=== PATIENT | female | born 1990 | race Caucasian/White ===

== ENCOUNTER 2019-01-06 14:11 | Inpatient (IN) | payer OTHER ==
[~2019-01-06 14:11] MED LIST: Bupivacaine/Epinephrine 0.25% 30 ML VIAL ONE
[2019-01-06 21:42] VITALS: BMI 39.1
[2019-01-06] MEDS ORDERED: Butorphanol Tartrate 1 MG/ML VIAL SLOW IVP PRN (21:52)
[2019-01-06] MEDS ORDERED: Carboprost 250 MCG/ML AMP IM PRN (21:52)
[2019-01-06] MEDS ORDERED: Lidocaine 1% (PF) 30 ML VIAL SC PRN (21:52)
[2019-01-06] MEDS ORDERED: Misoprostol 200 MCG TAB PR PRN (21:52)
[2019-01-06] MEDS ORDERED: HYDROcodone/Acetaminophen 5/325 mg Tablet PO PRN (21:52)
[2019-01-06] MEDS ORDERED: Diphenoxylate HCl/Atropine Tablet PO PRN (21:52)
[2019-01-06] MEDS ORDERED: Acetaminophen 500 MG TAB PO PRN (21:52)
[2019-01-06] MEDS ORDERED: Ondansetron PF 4 MG/2 ML Vial IVP PRN (21:52)
[2019-01-06] MEDS ORDERED: Promethazine HCl 25 MG/ML VIAL IM PRN (21:52)
[2019-01-06] MEDS ORDERED: Methylergonovine 0.2 MG/ML VIAL IM PRN (21:52)
[2019-01-06] MEDS ORDERED: Ibuprofen 800 MG TAB PO PRN (21:52)
[2019-01-06] MEDS ORDERED: NS / Oxytocin 40 units/1000ml 1,000 ML IV PRN (21:52)
[2019-01-06] MEDS ORDERED: NS w/ Oxytocin 10 units 500 ML IV SCH (22:00)
[2019-01-06] MEDS ORDERED: Penicillin G Potassium 5 MILL.UNITS in Sodium Chloride 0.9% 100 ML IVPB SCH (22:00)
[2019-01-06] MEDS: Lactated Ringer's 1,000 ML IV SCH (22:00)
[2019-01-06 22:15] LABS: Mean Corpuscular HGB CONC 33.1 g/dL (32.0-36.0); Mean Corpuscular Hemoglobin 26.2 pg (27.0-31.0); Mean Corpuscular Volume 79.2 fL (78.0-98.0); Mean Platelet Volume 8.6 fL (7.4-10.4); Platelet Count 296 thou/uL (130-400); RBC Distribution Width 14.5 % (11.5-14.5); Red Blood Cell (RBC) Count 3.81 mill/uL (4.20-5.40); White Blood Cell (WBC) Count 11.4 thou/uL (4.8-10.8)
[2019-01-06] MEDS: Misoprostol 100 MCG TAB VAG SCH (22:15)
[2019-01-06 22:48] LABS: HBSAg Index 0.36 S/CO (0-0.99); Hep B Surf Ag Non-Reactive S/CO (NonReactive)
[2019-01-06 22:55] LABS: Syphilis Antibody Nonreactive (Nonreactive); Syphilis Antibody Index 0.03 S/CO (<1.00 Non-Reactive)
[2019-01-07] MEDS: Lactated Ringer's 1,000 ML IV SCH ×2 (03:00→06:40)
[2019-01-07] MEDS: Misoprostol 100 MCG TAB VAG SCH ×3 (03:50→17:06)
[2019-01-07] MEDS ORDERED: Fentanyl 4 mcg/Bup 0.1% Cadd 100 ML ONE ×2 (05:30→12:32)
[2019-01-07] MEDS ORDERED: Naloxone HCl 0.4 mg/ml Vial IVP PRN ×2 (06:24)
[2019-01-07] MEDS ORDERED: ePHEDrine/0.9% NaCl/PF SYRINGE 50 mg/10 ml SLOW IVP PRN (06:24)
[2019-01-07] MEDS ORDERED: Lactated Ringer's 500 ML IV PRN (06:24)
[2019-01-07] MEDS ORDERED: diphenhydrAMINE 50 MG/ML VIAL IVP PRN (06:24)
[2019-01-07] MEDS ORDERED: Acetaminophen 325 MG TAB PO PRN (06:24)
[2019-01-07] MEDS ORDERED: Eucerin (Mineral Oil/Petrolatum,White) 30 gm Jar TOP PRN (06:24)
[2019-01-07] MEDS ORDERED: Ondansetron PF 4 MG/2 ML Vial IVP PRN ×2 (06:24→14:13)
[2019-01-07] MEDS ORDERED: Promethazine HCl 25 MG/ML VIAL IM PRN ×2 (06:24→14:13)
[2019-01-07] MEDS ORDERED: Fentanyl 4 mcg/Bupivacaine 0.1% Cassette 100 ML EPIDURAL SCH (06:30)
[2019-01-07] MEDS ORDERED: Communication Order-Pharmacy FS SCH (06:30)
[2019-01-07] MEDS: Penicillin G 2.5 MILL.units 2.5 MILL.UNITS in Premix Bag 1 BAG IVPB SCH ×3 (11:12→17:04)
[2019-01-07] MEDS ORDERED: NS / Oxytocin 40 units/1000ml 1,000 ML ONE (12:19)
--- NOTE | 2019-01-07 13:49 | PDOC.OPDEL ---
OB Operative/Delivery Note Delivery Dr/Surgeon: Justino Assist: n/a Pre-Delivery Diagnosis: elective induction Procedure/Post Delivery Dx: spontaneous vaginal delivery Weeks gestation: 39 Anesthesia: epidural - Findings A Sex: female - 1 min: 9 - 5 min: 9 - Additional Findings/Plan Placenta delivered: spontaneous Repaired Obstetrical Laceration: 1st degree (repaired with 2-0 vicryl in figure of eight for hemostasis) Estimated blood loss: 300 Post delivery plan: routine recovery
--- NOTE | 2019-01-07 13:51 | PDOC.LDHP ---
Labor and Delivery H&P Chief complaint: scheduled induction HPI: 28yo at 39w1d by LMP for elective IOL. No complaints, SROM at 0600 clear, s/p cytotec x 2 doses last night. Working epidural in place. Current gestational age (weeks): 39 Due date: 01/13/19 Dating criteria: last menstrual period Grav: 1 Para: 0 Current complications: none Abnormal US findings: No Past Medical History: denies Current medications: pre- vitamins Previous surgical history: none Allergies/Adverse Reactions: Allergies Allergy/AdvReac Type Severity Reaction Status Date / Time No Known Allergies Allergy Verified 01/06/19 21:43 Social history: none - Physical Exam Vital signs reviewed and normal: yes General: NAD Heart: RRR Lungs: CTAB Abdomen: gravid Extremeties: no edema FHT: category 1 [employer] contractions every: 2-4min - Vaginal Exam cm dilated: 4 Effacement: 75% Station: -2 - OB Labs Blood type: O RH: positive Antibody Screen: negative HIV: negative RPR: negative HEPSAg: negative 1 hour GCT: positive 3 hour GTT: negative GBS: positive Urine drug screen: negative Rubella: immune - Assessment L&D Assessment: elective induction at term - Plan Plan: admit to L&D, cervical ripening, labor augmentation if indicated, GBS antibiotic prophylaxis, informed consent obtained, anesthesia consult for pain management
[2019-01-07] MEDS ORDERED: HYDROcodone/Acetaminophen 5/325 mg Tablet PO PRN ×2 (14:13)
[2019-01-07] MEDS ORDERED: Benzocaine-Menthol 82.5 ML CAN TOP PRN (14:13)
[2019-01-07] MEDS ORDERED: Lanolin Ointment 7 GM TUBE TOP PRN (14:13)
[2019-01-07] MEDS ORDERED: Milk Of Magnesia 30 ML UDCUP PO PRN (14:13)
[2019-01-07] MEDS ORDERED: Adacel (T-DAP) 0.5 ML SYRINGE IM ONE (14:13)
[2019-01-07] MEDS ORDERED: diphenhydrAMINE 25 MG CAP PO PRN (14:13)
[2019-01-07] MEDS ORDERED: NS / Oxytocin 40 units/1000ml 1,000 ML IV SCH (14:13)
[2019-01-07] MEDS ORDERED: Bisacodyl 10 MG SUPP PR PRN (14:13)
[2019-01-07] MEDS ORDERED: Preparation H Ointment 28 GM TUBE PR PRN (14:13)
[2019-01-07] MEDS: Ibuprofen 800 MG TAB PO SCH ×2 (17:00→18:54)
[2019-01-07] MEDS: Ferrous Sulfate 325 MG TAB PO SCH (17:01)
[2019-01-07] MEDS ORDERED: Sodium Chloride 0.9% 10 ML ONE (20:14)
[2019-01-07] MEDS: Docusate Calcium (SURFAK) 240 MG CAP PO SCH (21:40)
[2019-01-08] MEDS: Ibuprofen 800 MG TAB PO SCH ×3 (05:15→22:01)
[2019-01-08] MEDS: Ferrous Sulfate 325 MG TAB PO SCH ×2 (07:34→17:24)
--- NOTE | 2019-01-08 09:28 | PDOC.PP ---
Post Progress Note Post Day #: 1 Subjective: doing well, nursing well, normal lochia, prefers DC home today if baby DC PO intake tolerated: yes Flatus: yes Ambulation: yes Vital Signs (12 hours) Temp Pulse Resp BP BP Pulse Ox 01/08/19 08:13 98.0 F 64 20 108/55 L 98 01/08/19 05:05 98.1 F 61 18 107/54 L 100 01/08/19 00:10 98.4 F 70 20 109/58 L 96 Weight Weight 235 lb - Physical Examination General: NAD Respiratory: non-labored breathing Skin: no rash Neurological: no gross focal deficits Psychiatric: A&Ox3, normal affect Result Diagrams: 01/06/19 21:57 Additional Labs: Post Labs Blood Type O POSITIVE 01/06/19 21:57 Hep Bs Antigen Non-Reactive S/CO (NonReactive) 01/06/19 21:57 - Assessment/Plan PPD1 doing well, no concerns, desires DC home today if baby DC'd.
[2019-01-08] MEDS: Docusate Calcium (SURFAK) 240 MG CAP PO SCH ×2 (09:46→22:01)
[2019-01-08] MEDS: Prenatal Vitamin 1 TAB PO SCH (09:46)
[2019-01-09] MEDS: Ibuprofen 800 MG TAB PO SCH (05:24)
[2019-01-09 08:09] VITALS: BP 110/65; TEMP 97.9
[2019-01-09] MEDS: Prenatal Vitamin 1 TAB PO SCH (09:02)
[2019-01-09] MEDS: Docusate Calcium (SURFAK) 240 MG CAP PO SCH (09:02)
[2019-01-09] MEDS: Ferrous Sulfate 325 MG TAB PO SCH (09:02)
--- NOTE | 2019-01-09 09:43 | PDOC.PP ---
Post Progress Note Post Day #: 2 Subjective: Having sore nipples and difficultly with painful latch. She would like help PO intake tolerated: yes Flatus: yes Ambulation: yes Vital Signs (12 hours) Temp Pulse Resp BP Pulse Ox 01/09/19 08:09 97.9 F 73 20 110/65 99 Weight Weight 235 lb - Physical Examination General: NAD Cardiovascular: no m/r/g, RRR Respiratory: clear to auscultation bilaterally Abdominal: lochia (minimal) Extremities: negative homans (B) Skin: no rash Neurological: no gross focal deficits Psychiatric: A&Ox3, normal affect Result Diagrams: 01/06/19 21:57 Additional Labs: Post Labs Blood Type O POSITIVE 01/06/19 21:57 Hep Bs Antigen Non-Reactive S/CO (NonReactive) 01/06/19 21:57 - Assessment/Plan A: 1degree. NML PPD 1 exam. Stage one nipple damage P: Assisted with breasteeding at bedside. Edu on nml , infant cues , position, saiety. LATCH. Discharge home today. Six week follow up visit with Dr. Prado Call [facility] for assistance with .
== END 2019-01-09 10:35 | disposition home or self-care (01) | DRG 807 ==
LOC: L&D 21:13 → 3SW 01-07 16:03
PROVIDERS: ADMIT Student in an Organized Health Care Education/Training Program; ATTEND Student in an Organized Health Care Education/Training Program
PROC: 10E0XZZ Delivery of Products of Conception, External Approach (ICD-10-PCS; principal; 2019-01-06)
PROC: 0HQ9XZZ Repair Perineum Skin, External Approach (ICD-10-PCS; 2019-01-06)
DX: O70.0 First degree perineal laceration during delivery (principal); Z37.0 Single live birth; Z3A.39 39 weeks gestation of pregnancy
CPT/HCPCS: 36415; 51702; 85027; 86780; 86850; 86900; 86901; 87340; J2405; J2540; J7050

== ENCOUNTER 2024-11-14 08:23 | Day surgery (SDC) | payer BC ==
[2024-11-14] MEDS ORDERED: Acetaminophen 500 MG TAB ONE (08:33)
[2024-11-14] MEDS: Acetaminophen 500 MG TAB PO SCH (08:35)
[2024-11-14] MEDS: Iron Sucrose Complex 500 MG in Sodium Chloride 0.9% 250 ML IVPB SCH (09:18)
[2024-11-14 14:00] VITALS: BP 114/62; TEMP 97.8
== END 2024-11-14 14:13 | disposition home or self-care (01) ==
LOC: ONC/OP 08:23
PROVIDERS: ATTEND Advanced Practice Midwife
DX: O99.019 Anemia complicating pregnancy, unspecified trimester (principal); Z3A.00 Weeks of gestation of pregnancy not specified
CPT/HCPCS: 96365; 96366; J1756; J7050